=== PATIENT | female | born 1965 | race Caucasian/White ===

== ENCOUNTER 2022-03-18 10:49 | Emergency (ER) | payer OTHER, SELFPAY ==
[2022-03-18 11:21] VITALS: BP 117/78; PULSE 89; RESP 18; TEMP 36.5; O2SAT 96; BMI 23.6
[2022-03-18 12:25] LABS: Lactate* 1.1 mmol/L (0.5-1.9)
[2022-03-18 12:31] LABS: Basophils Absolute Auto 0.03 K/uL (0.00-0.30); Basophils Percent Auto 0.3 % (0.0-3.0); Eosinophils Absolute Auto 0.05 K/uL (0.00-0.50); Eosinophils Percent Auto 0.5 % (0.0-7.0); Hematocrit 41.6 % (33.0-51.0); Hemoglobin* 14.2 gm/dL (12.0-16.0); Immature Granulocytes Abs Auto 0.01 K/uL (0.00-0.30); Lymphocytes Percent Auto 7.8 % (20-44); Mean Corpuscular HGB Conc 34 gm/dL (32-36); Mean Corpuscular Hemoglobin 32 pg (26-34); Mean Corpuscular Volume 94 fL (80-100); Monocytes Percent Auto 8.5 % (0.0-11.0); Neutrophils Percent Auto 82.8 % (42.0-72.0); Platelet Count* 190 K/uL (140-440); RDW Coefficient of Variation % 12.5 % (11.5-15.5); Red Blood Count 4.42 m/uL (4.00-5.20); White Blood Count* 9.34 K/uL (4.50-11.00)
[2022-03-18] MEDS: PIPERACILLIN/TAZOBACTAM 4.5 GM in 0.9 % SODIUM CHLORIDE Mini-bag 100 ML IVPB (12:32)
[2022-03-18 12:35] LABS: Slide Review Reflex No
[2022-03-18 12:39] LABS: Chloride* 101 mmol/L (96-114); Sodium* 138 mmol/L (135-149)
[2022-03-18 12:40] LABS: Potassium* 3.7 mmol/L (3.6-5.1)
[2022-03-18 12:42] LABS: Creatinine* 0.6 mg/dL (0.5-1.5); Est. Creatinine Clearance* 79.85; Estimated Glomerular Filt Rate 103 ml/min
[2022-03-18 12:43] LABS: Blood Urea Nitrogen* 13 mg/dL (7-30); Carbon Dioxide* 26 mmol/L (20-32); Glucose* 133 mg/dL (60-115)
[2022-03-18 12:44] LABS: Calcium* 9.4 mg/dL (8.4-10.6)
[2022-03-18 13:04] LABS: PCR FLU A Negative PCR FLU A (Negative); PCR FLU B Negative PCR FLU B (Negative)
[2022-03-18 13:05] LABS: SARS PCR* Negative SARS-CoV-2 (Negative)
[2022-03-18 13:37] LABS: Erythrocyte SedimentationRate* 16 mm/hr (2-20)
--- NOTE | 2022-03-18 13:50 | ED_ITS ---
HPI - General Adult General Chief complaint: Skin/Abscess/Foreign Body Stated complaint: Swelling and Redness in Face Time Seen by Provider: 03/18/22 11:42 Source: patient Mode of arrival: ambulatory Limitations: no limitations History of Present Illness HPI narrative: 57-year-old female coming in today concerned about a rash on her face. She was seen in the urgent care yesterday and diagnosed with cellulitis. She was given IM Rocephin and sent home with cephalexin and doxycycline. In the last 24 hours since starting her antibiotics her rash has gotten worse. Redness has increased and spread, discomfort has increased. She denies any systemic symptoms such as fevers or chills. She denies any blurry vision. No changes in her hearing. No difficulty eating breathing or swallowing. No new medications aside from her current treatment. No joint pain or body aches. Related Data Home Medications Medication Instructions Recorded Confirmed citalopram 20 mg tablet (Celexa) 20 mg PO DAILY 03/18/22 03/18/22 Allergies Allergy/AdvReac Type Severity Reaction Status Date / Time No Known Drug Allergies Allergy Verified 03/18/22 11:31 Review of Systems Status of ROS: Reports: 10 or more systems reviewed and unremarkable except as noted in History and below PFSH [facility] Social History Smoking Status: Never smoker Do you use any of these nicotine containing products: None How often do you have a drink containing alcohol: never AUDIT-C Alcohol total score: 0 Non-prescribed substance use: denies use Exam Narrative: Exam Narrative: Well-nourished well-developed patient in no acute distress. Alert and oriented. Answers questions appropriately. Mood and affect are appropriate. Thoughts are goal oriented and rational. No tangential or magical thinking noted. Patient speaks in full sentences without needing to catch their breath. HEENT: Normocephalic atraumatic. Pupils are equally round reactive to light. Extraocular muscles are intact. Conjunctivae are moist without any icterus noted. Moist mucous membranes. Posterior pharynx is normal. Neck is soft without any lymphadenopathy or thyromegaly. No masses are appreciated. Patient has a hot, erythematous rash extending from 1 cheek across the bridge of the nose all the way across the other cheek. Extends all the way to her lower eyelids and down under her nose almost touching the upper lip. The skin is indurated, firm, hot. She has a couple of dots that are filled with pus scattered across the face. Cardiovascular: Heart is regular rate and rhythm S1 and S2 are present without any murmurs. Lungs: Clear to auscultation bilaterally no wheezes rhonchi or rales are appreciated. Patient takes deep breaths without any discomfort. Abdomen: Soft and nontender nondistended with normal bowel sounds. Extremities: Bilateral lower extremities are without edema. Const: Vital Signs, click to edit/add: Vital Signs - 24 hr 03/18/22 11:21 03/18/22 18:01 Temperature 97.7 F 98.5 F Pulse Rate [Right Pulse Oximeter] 89 78 Respiratory Rate 18 18 Blood Pressure [Ri ght Upper Arm] 117/78 135/80 Pulse Oximetry 96 96 Oxygen Delivery Me thod Room Air Room Air Course Course Hospital Course: IV was established and Blood work was done did show an elevated CRP at 8. Labs otherwise unremarkable. Given the distribution of her rash I also did draw lupus anticoagulants. Patient was given 1 IV dose of vancomycin and Zosyn. I did consult with Dr. Culver, he recommended vancomycin q.12 hours. Given that there are no hospital beds available anywhere in the state including our own hospital we opted for outpatient treatment at this time. Vital Signs Vital signs: Initial Vital Signs Temperature 97.7 F 03/18/22 11:21 Temperature Source Temporal Artery Scan 03/18/22 11:21 Pulse Rate 89 03/18/22 11:21 Respiratory Rate 18 03/18/22 11:21 Blood Pressure 117/78 03/18/22 11:21 Blood Pressure Mean 91 03/18/22 11:21 Blood Pressure Position Sitting 03/18/22 11:21 Pulse Oximetry 96 03/18/22 11:21 Oxygen Delivery Method 03/18/22 11:21 Vital Signs Temperature 97.7 F 03/18/22 11:21 Pulse Rate 89 03/18/22 11:21 Respiratory Rate 18 03/18/22 11:21 Blood Pressure 117/78 03/18/22 11:21 Pulse Oximetry 96 03/18/22 11:21 Oxygen Delivery Method 03/18/22 11:21 Temperature 98.5 F 03/18/22 18:01 Pulse Rate 78 03/18/22 18:01 Respiratory Rate 18 03/18/22 18:01 Blood Pressure 135/80 03/18/22 18:01 Pulse Oximetry 96 03/18/22 18:01 Oxygen Delivery Method 03/18/22 18:01 Medical Decision Making MDM Narrative Medical decision making narrative: 57-year-old female with facial cellulitis. Patient does need admission for IV antibiotics unfortunately there were no beds available in the [facility]. Therefore at this point patient will continue on vancomycin q.12 hours. She will have received a total of 2 doses today and will receive her 3rd dose in the morning of 03/19/2022. Pharmacist has been consulted as well and they will follow up with vancomycin levels on Monday night into Monday morning and follow this patient to titrate her medicine as needed. I recommend she follow up with her primary care provider early next week. Lab Data Lab results reviewed: Yes I reviewed the patient's lab results Labs: Lab Results 03/18/22 03/18/22 03/18/22 Range/Units 12:15 12:15 12:15 WBC 9.34 (4.50-11.00) K/uL RBC 4.42 (4.00-5.20) m/uL Hgb 14.2 (12.0-16.0) gm/dL Hct 41.6 (33.0-51.0) % MCV 94 (80-100) fL MCH 32 (26-34) pg MCHC 34 (32-36) gm/dL RDW Coeff of Emmett 12.5 (11.5-15.5) % Plt Count 190 (140-440) K/uL Neut % (Auto) 82.8 H (42.0-72.0) % Lymph % (Auto) 7.8 L (20-44) % [place] % (Auto) 8.5 (0.0-11.0) % Eos % (Auto) 0.5 (0.0-7.0) % Baso % (Auto) 0.3 (0.0-3.0) % Neut # (Auto) 7.70 H (1.7-7.0) K/uL Lymph # (Auto) 0.70 L (0.90-2.90) K/uL [place] # (Auto) 0.80 (0.00-0.90) K/UL Eos # (Auto) 0.05 (0.00-0.50) K/uL Baso # (Auto) 0.03 (0.00-0.30) K/uL Abs Immat Gran (auto) 0.01 (0.00-0.30) K/uL ESR 16 (2-20) mm/hr Sodium 138 (135-149) mmol/L Potassium 3.7 (3.6-5.1) mmol/L Chloride 101 (96-114) mmol/L Carbon Dioxide 26 (20-32) mmol/L BUN 13 (7-30) mg/dL Creatinine 0.6 (0.5-1.5) mg/dL Estimated Creat Clear 79.85 Estimated GFR 103 ml/min Glucose 133 H (60-115) mg/dL Lactate (0.5-1.9) mmol/L Calcium 9.4 (8.4-10.6) mg/dL C-Reactive Protein 8.0 H (0.5-1.0) mg/dL SARS-CoV-2 (PCR) (Negative) Influenza Type A (PCR) (Negative) Influenza Type B (PCR) (Negative) 03/18/22 03/18/22 Range/Units 12:15 12:15 WBC (4.50-11.00) K/uL RBC (4.00-5.20) m/uL Hgb (12.0-16.0) gm/dL Hct (33.0-51.0) % MCV (80-100) fL MCH (26-34) pg MCHC (32-36) gm/dL RDW Coeff of Emmett (11.5-15.5) % Plt Count (140-440) K/uL Neut % (Auto) (42.0-72.0) % Lymph % (Auto) (20-44) % [place] % (Auto) (0.0-11.0) % Eos % (Auto) (0.0-7.0) % Baso % (Auto) (0.0-3.0) % Neut # (Auto) (1.7-7.0) K/uL Lymph # (Auto) (0.90-2.90) K/uL [place] # (Auto) (0.00-0.90) K/UL Eos # (Auto) (0.00-0.50) K/uL Baso # (Auto) (0.00-0.30) K/uL Abs Immat Gran (auto) (0.00-0.30) K/uL ESR (2-20) mm/hr Sodium (135-149) mmol/L Potassium (3.6-5.1) mmol/L Chloride (96-114) mmol/L Carbon Dioxide (20-32) mmol/L BUN (7-30) mg/dL Creatinine (0.5-1.5) mg/dL Estimated Creat Clear Estimated GFR ml/min Glucose (60-115) mg/dL Lactate 1.1 (0.5-1.9) mmol/L Calcium (8.4-10.6) mg/dL C-Reactive Protein (0.5-1.0) mg/dL SARS-CoV-2 (PCR) Negative SARS-CoV-2 (Negative) Influenza Type A (PCR) Negative PCR FLU A (Negative) Influenza Type B (PCR) Negative PCR FLU B (Negative) Discharge Plan Discharge Clinical Impression: Cellulitis Patient Disposition: Home, Self-Care Condition: Stable Additional Instructions: You will need IV antibiotics every 12 hours. Recommend you follow-up with primary care provider early next week. Return to the ER for evaluation if you feel like things are getting worse instead of better. Prescriptions: No Action citalopram [Celexa] 20 mg tablet 20 mg PO DAILY Follow Up/Referrals: Ernestine Bailey MD [Primary Care Provider] - Stand Alone Forms: [employer] Info Instructions
[2022-03-18] MEDS: IBUPROFEN 400 MG TABLET 800 MG PO (16:48)
[2022-03-18 18:01] VITALS: BP 135/80; PULSE 78; RESP 18; TEMP 36.9; O2SAT 96
[2022-03-18 19:54] VITALS: BP 135/80; PULSE 78; RESP 18; TEMP 36.9
--- NOTE | 2022-03-18 21:57 | ED.NURSE ---
pt and called with concerns of increased swelling into R eye with increased protruding outward swelling on R cheek bone with eyes swelling more closed, also with clear fluid leaking out of eye lid. both state worsening swelling since dc from ER. MD Leon and MD Walden consulted in person by this RN explaining pt and husbands concerns, MD verbal to tell patient that this will be expected with the cellulitis as it moves around and they are on the right medications for treatment and to make sure to make 8AM vanco infusion appointment. Pt and educated on if changes in eye vision to return to ED.
[2022-03-22 21:31] LABS: Prothrombin Time 14.2 sec (12.0-15.5); dRVVT Screen 36 sec (33-44)
== END 2022-03-18 19:55 | disposition home or self-care (01) ==
PROVIDERS: Emergency Provider Family Medicine; PCP Family Medicine
DX: L03.211 Cellulitis of face (principal)
CPT/HCPCS: 36415; 80048; 83605; 85025; 85610; 85613; 85651; 85730; 86140; 87631; 96365; 96366; 96367; 99284; 99285; A9270; J2543; J3370; J7050

== ENCOUNTER 2022-03-22 08:02 | Outpatient (RCR) | payer OTHER, SELFPAY ==
[2022-03-19 08:31] VITALS: BP 114/75; PULSE 67; RESP 18; TEMP 36.8; O2SAT 97
--- NOTE | 2022-03-19 08:34 | PC.NURSE ---
PATIENT HERE FOR VANCOMYCIN INFUSION. FACE CONTINUES TO BE REDDENED AND PATIENT DENIED ANY FEVERS AT HOME. DR. GÓMEZ UPDATED THAT PATIENT WAS HERE AND HE ASSESSED HER IN ROOM.
--- NOTE | 2022-03-19 08:36 | PC.NURSE ---
DR. GÓMEZ ALSO ORDERED THAT THE VANCOMYCIN TROUGH ORDERED FOR 03/[address] ALEJANDRO DOES NOT NEED TO BE DRAWN. HE WILL REASSESS AT A LATER TIME.
[2022-03-19 19:00] VITALS: BP 137/80; PULSE 65; RESP 18; TEMP 36.9; O2SAT 96
[2022-03-19 21:45] VITALS: BP 128/77; PULSE 66; RESP 16; TEMP 36.7; O2SAT 97
--- NOTE | 2022-03-19 22:39 | PC.NURSE ---
Patient tolerated Vancomycin infusion well. Remains afebrile. Face is reddened but is within the previously drawn lines. Pain is tolerable and controlled by Advil per patient. Patient and in good spirits. Next infusion is 03/20/22 at 0800.
[2022-03-20 08:16] VITALS: BP 144/74; PULSE 55; RESP 16; TEMP 36.8; O2SAT 96
[2022-03-20 19:00] VITALS: BP 149/95; PULSE 74; RESP 16; TEMP 36.9; O2SAT 95
[2022-03-20 21:46] VITALS: BP 158/90; PULSE 60; RESP 18; TEMP 36.8; O2SAT 96
[2022-03-21 08:20] VITALS: BP 139/82; PULSE 63; RESP 18; TEMP 36.5; O2SAT 98
--- NOTE | 2022-03-21 09:32 | PC.NURSE ---
Patient tolerated IV infusion of vancomycin without difficulty. Dr. Culver assessed patient facial cellulitis. Patient to return for 2000 dose of vancomycin.
[2022-03-21 19:50] VITALS: BP 149/79; PULSE 63; RESP 18; TEMP 36.3; O2SAT 96
[2022-03-21 22:59] VITALS: BP 150/99; PULSE 65; RESP 18; TEMP 36.4; O2SAT 95
[2022-03-22 08:21] VITALS: BP 131/74; PULSE 70; RESP 16; TEMP 36.2; O2SAT 99
--- NOTE | 2022-03-22 08:57 | PM.EN ---
Chart Event Note Time Seen by Provider: 08:58 Date Seen: 03/22/22 Chart Event Note: 57-year-old female with facial cellulitis getting outpatient treatment vancomycin. Face is now much better. Will discontinue vancomycin and resume outpatient oral antibiotics with doxycycline 100 b.i.d. and Keflex 500 q.i.d.. Anticipate resolution of cellulitis over the next week. Follow up with primary care next week if not better.
[2022-03-22 09:35] VITALS: BP 152/94; PULSE 57; RESP 16; TEMP 36.2; O2SAT 99
--- NOTE | 2022-03-22 09:47 | PC.NURSE ---
Pt DC home, tolerated Abx well, IV Dc'd tip intact
== END 2022-03-22 23:00 | disposition home or self-care (01) ==
LOC: MS OUT 08:02
PROVIDERS: PCP Family Medicine; Visit Provider Family Medicine
DX: L03.211 Cellulitis of face (principal)
CPT/HCPCS: 96365; 99211; J3370; J7050